=== PATIENT | female | born 1970 | race Caucasian/White ===

== ENCOUNTER 2016-10-14 18:24 | Inpatient (IN) | payer BC ==
[~2016-10-14] VITALS: Ht 170.2 cm; Wt 107.5 kg
[2016-10-14 18:34] VITALS: BP 148/70
--- NOTE | 2016-10-14 20:00 | NUR ---
PATIENT TO ER BED 7
--- NOTE | 2016-10-14 20:08 | NUR ---
PT IS 46/F BIB TO ED WITH C/O DIZZINESS X 2 WKS PROGRESSIVELY WORSENING, FATIGUED, HEAVY MENSES 8 SANITARY [place]/ DAY X 2 MONTHS, LOWER ABDOMINAL PAIN, PALE APPEARING. PT STATES MED HX HTN, FIBROID/CYST UTERUS. DENIES N/V; SKIN IS WARM/DRY; AAOX4 WITH EVEN AND STEADY GAIT; LUNGS CLEAR BL; HR EVEN AND REGULAR; PT DENIES ANY FEVER, CP, SOB, OR COUGH AT THIS TIME; PATIENT STATES PAIN OF 8/10 AT THIS TIME; VSS; PATIENT POSITIONED FOR COMFORT; HOB ELEVATED; BEDRAILS UP X2; BED DOWN. ER MD MADE AWARE OF PT STATUS.
--- NOTE | 2016-10-14 20:10 | NUR ---
PATIENT BEING EVALUATED BY DR. GÓMEZ.
--- NOTE | 2016-10-14 21:52 | NUR ---
PT RESTING IN BED NO SOB NOTED. AT BEDSIDE.
--- NOTE | 2016-10-14 22:35 | NUR ---
STARTED BLOOD TRANSFUSION. WILL CONTINUE TO CLOSELY MONITOR. AT BEDSIDE
[2016-10-14] MEDS ORDERED: MORPHINE SULFATE 4 MG/ML SYR IVP ONE (23:05)
--- NOTE | 2016-10-15 00:35 | NUR ---
PT STATED SHE STARTED TO HAVE A PAIN BELOW BREAST AREA. ER MD MADE AWARE. NO SOB NOTED. CURRENT TEMP IS 98.0 F WILL CONTINUE TO CLOSELY MONITOR.
[2016-10-15] MEDS ORDERED: MORPHINE SULFATE 4 MG/ML SYR IVP ONE (00:40)
[2016-10-15] MEDS ORDERED: ACETAMINOPHEN 325 MG TAB PO PRN (00:45)
[2016-10-15] MEDS ORDERED: HYDROcodone/APAP 5/325 MG 1 TAB TAB PO PRN (00:45)
[2016-10-15] MEDS ORDERED: MORPHINE SULFATE 2 MG/ML SYR IVP PRN (00:45)
[2016-10-15] MEDS ORDERED: ONDANSETRON 4 MG/2 ML VIAL IVP PRN ×3 (00:45→16:00)
[2016-10-15] MEDS ORDERED: diphenhydrAMINE 50 MG/ML VIAL IVP ONE (01:15)
[2016-10-15] MEDS ORDERED: ACETAMINOPHEN EXTRA STRENGTH 500 MG TAB PO ONE (01:15)
--- NOTE | 2016-10-15 02:08 | NUR ---
Patient will be admitted to care of DR ARMENTA. Admited to TELE. Will go to room 105B. Belongings list completed. Report to TRICE COLE.
--- NOTE | 2016-10-15 02:30 | NUR ---
ADMITTED THIS 46 YEAR OLD FEMALE FROM ER PER [facility] WITH CC OF DIZZINESS AND UTERINE BLEEDING, AMBULATED TO BR WITH STEADY GAIT, PROVIDED WITH SANITARY PADS AND DISPOSABLE UNDERWEAR, VERBALIZED MODERATE BLEEDING WITH CLOTS, DENIES ANY PAIN AT THIS TIME, VITAL SIGNS STABLE, ASSESSMENT DONE, ORIENTED TO ROOM AND CALL LIGHT, INSTRUCTED NPO STATUS, VERBALIZED UNDERSTANDING, SAFETY MEASURES IN PLACE, CALL LIGHT WITHIN REACH.
[2016-10-15 03:00] VITALS: BP 119/70
[2016-10-15] MEDS: NACL 0.9% 1,000 ML IV SCH ×3 (03:00→12:38)
--- NOTE | 2016-10-15 03:06 | NUR ---
2ND UNIT OF PRBC STARTED, MONITORED CLOSELY FOR REACTION, VITAL SIGNS MONITORED PER PROTOCOL.
[2016-10-15 04:00] VITALS: BP 113/65
--- NOTE | 2016-10-15 04:15 | NUR ---
COMPLAINING OF CHEST PAIN, VITAL SIGNS STABLE, MEDICATED PRN FOR PAIN, PUT ON O2 AT 2L VIA NC, BLOOD TRANSFUSION ON-GOING, MONITORED CLOSELY.
--- NOTE | 2016-10-15 04:30 | NUR ---
SPOKE TO FAMILIA FROM RADIOLOGY AND SAID THEY WILL DO THE PELVIC ULTRASOUND IN MORNING, PT MADE AWARE.
--- NOTE | 2016-10-15 06:00 | NUR ---
BLOOD TRANSFUSION DONE, TOLERATED WELL, VITAL SIGNS STABLE, DENIES ANY PAIN AT THIS TIME, IVF OF NS AT 80ML/H STARTED, SCD'S APPLIED TO CATHI LOWER EXT, MAINTAINED ON NPO, MONITORED CLOSELY.
--- NOTE | 2016-10-15 07:20 | NUR ---
PT AWAKE, NO DISTRESS NOTED, REPORT GIVEN TO TRICE HERNANDEZ FOR CONTINUITY OF CARE.
--- NOTE | 2016-10-15 07:25 | NUR ---
RECEIVED REPORT FROM NIGHT RN. PT RESTING IN BED, NO S/S OF ACUTE DISTRESS NOTED, PT DENIES PAIN AT THIS TIME, AAO X 4, IV PATENT AND INTACT, ABDOMEN SOFT AND NON-TENDERED, CALL LIGHT WITHIN REACH, SAFETY MEASURE ENSURED, WILL CONTINUE TO MONITOR.
[2016-10-15 08:00] VITALS: BP 107/69
--- NOTE | 2016-10-15 08:22 | NUR ---
PATIENT HAS BEEN SCREENED AND CATEGORIZED MODERATE NUTRITION RISK. PATIENT WILL BE SEEN WITHIN 3-5 DAYS OF ADMISSION. 10/17/16-10/19/[address]
--- NOTE | 2016-10-15 10:00 | NUR ---
PT RESTING IN BED, FAMILY MEMBERS AT THE BEDSIDE. NO S/S OF ACUTE DISTRESS NOTED, PT DENIES PAIN AT THIS TIME. CALL LIGHT WITHIN REACH, SAFETY MEASURE ENSURED, WILL CONTINUE TO MONITOR
[2016-10-15] MEDS ORDERED: ASCORBIC ACID 500 MG TAB PO SCH (11:29)
--- NOTE | 2016-10-15 11:57 | NUR ---
PT STATED HEADACHE 09/28. NO S/S OF ACUTE DISTRESS NOTED, MEDICATED ORDERED. FAMILY MEMBER AT BEDSIDE. CALL LIGHT WITHIN REACH, SAFETY MEASURE ENSURED, WILL CONTINUE TO MONITOR.
[2016-10-15 12:00] VITALS: BP 110/64
--- NOTE | 2016-10-15 12:55 | NUR ---
ASSISTED PT TO THE RESTROOM. BLOOD CLOTS NOTED AFTER VOID, PT STATED NO PAIN OR DISCOMFORT WHEN URINATING. PT STATED NO PAIN AND SHE IS RESTING IN BED RIGHT NOW. CALL LIGHT WITHIN REACH, SAFETY MEASURE ENSURED, WILL CONTINUE TO MONITOR.
--- NOTE | 2016-10-15 15:27 | NUR ---
PT TAKEN OFF UNIT TO OR
[2016-10-15] MEDS ORDERED: PROPOFOL 200 MG/20 ML VIAL IV ONE (15:30)
[2016-10-15] MEDS ORDERED: MIDAZOLAM 2 MG/2 ML VIAL ONE (15:44)
[2016-10-15] MEDS ORDERED: fentaNYL 0.05 MG/ML VIAL ONE (15:44)
[2016-10-15] MEDS ORDERED: MEPERIDINE 25 MG/ML SYR ONE (15:45)
[2016-10-15] MEDS ORDERED: MORPHINE SULFATE 4 MG/ML SYR IM/IVP PRN (16:00)
[2016-10-15] MEDS ORDERED: IBUPROFEN 800 MG TAB PO PRN (16:00)
[2016-10-15] MEDS ORDERED: MEPERIDINE 25 MG/ML SYR IVP PRN (16:00)
[2016-10-15] MEDS ORDERED: ACETAMINOPHEN/CODEINE 300/30MG 1 TAB PO PRN (16:00)
[2016-10-15] MEDS ORDERED: diphenhydrAMINE 50 MG/ML VIAL IVP PRN (16:00)
[2016-10-15] MEDS ORDERED: HYDROmorphone 1 MG/ML AMP IVP PRN (16:00)
[2016-10-15 16:45] VITALS: BP 119/70
--- NOTE | 2016-10-15 16:45 | NUR ---
PT RETURNED TO THE UNIT FROM OR. PT IS IN STABLE CONDITION, NO S/S OF ACUTE DISTRESS NOTED, PT DENIES PAIN AT THIS TIME. MINIMAL VAGINAL BLEEDING NOTED. INFORMED PT TO CALL NURSE WHEN SHE NEEDS TO USE RESTROOM. FAMILY MEMBER IS AT BEDSIDE. CALL LIGHT WITHIN REACH, SAFETY MEASURE ENSURED, WILL CONTINUE TO MONITOR.
[2016-10-15] MEDS: FERROUS SULFATE 325 MG TABEC PO SCH (17:19)
--- NOTE | 2016-10-15 17:35 | NUR ---
PT IS SITTING UP IN BED AND EATING DINNER. IV INFILTRATED, OFFERED TO START NEW IV, PT REFUSED. NO S/S OF ACUTE DISTRESS NOTED, FAMILY MEMBER IS AT BEDSIDE, CALL LIGHT WITHIN REACH, SAFETY MEASURE ENSURED, WILL CONTINUE TO MONITOR
[2016-10-15] MEDS: LACTATED RINGERS 1,000 ML IV SCH (17:42)
--- NOTE | 2016-10-15 18:04 | NUR ---
ASSISTED PT TO THE RESTROOM, NO CLOT NOTED AFTER VOID, FLATULENCE PRESENT, NO S/S OF ACUTE DISTRESS NOTED, PT FINISHED 100% DINNER, DENIES PAIN AT THIS TIME. FAMILY MEMBER AT BEDSIDE, CALL LIGHT WITHIN REACH, SAFETY MEASURE ENSURED, WILL CONTINUE TO MONITOR.
--- NOTE | 2016-10-15 19:21 | NUR ---
ENDORSED PLAN OF CARE TO NIGHT RN. PT IS STABLE
--- NOTE | 2016-10-15 19:21 | NUR ---
RECEIVED REPORT FROM DAY RN FOR CONTINUITY OF CARE. PATIENT IS A&OX4, DISCUSSED PLAN OF CARE WITH PATIENT, VERBALIZED UNDERSTANDING. SHIFT ASSESSMENT DONE, VS TAKEN, STABLE. NO S/S OF RESPIRATORY DISTRESS NOTED ON ROOM AIR. PATIENT DENIES PAIN. VOMITED X1, MEDICATED PER MD ORDER. IV TO RT AC 20 GAUGE PATENT AND INFUSING FLUIDS WELL. PATIENT AMBULATED TO RESTROOM. SAFETY PRECAUTIONS ENFORCED. WILL CONTINUE TO MONITOR.
[2016-10-15 20:00] VITALS: BP 119/78
--- NOTE | 2016-10-15 21:00 | NUR ---
SPOKE TO DR. RICHARDSON REGARDING PT REQUEST FOR SLEEPING MEDICATION, WILL ADMINISTERED ORDERED.
[2016-10-15] MEDS ORDERED: TEMAZEPAM 15 MG CAP PO PRN (21:10)
--- NOTE | 2016-10-15 22:15 | NUR ---
PT AMBULATED TO RESTROOM, SCANT BLEEDING NOTED. RETURNED TO BED AND MADE COMFORTABLE. CALL LIGHT WITHIN REACH. WILL CONTINUE TO MONITOR.
[2016-10-16] VITALS: BP 114/75
--- NOTE | 2016-10-16 00:03 | NUR ---
VS TAKEN, STABLE. PT RESTING IN BED, NO S/S OF DISTRESS OR DISCOMFORT NOTED. PER PT AMBULATED TO RESTROOM WITH MINIMAL BLEEDING NOTED. CALL LIGHT WITHIN REACH. WILL CONTINUE TO MONITOR.
[2016-10-16] MEDS: LACTATED RINGERS 1,000 ML IV SCH ×3 (00:18→08:38)
--- NOTE | 2016-10-16 02:04 | NUR ---
PATIENT SLEEPING AT THIS TIME. NO S/S OF DISTRESS OR DISCOMFORT NOTED. CALL LIGHT WITHIN REACH. WILL CONTINUE TO MONITOR.
[2016-10-16 04:00] VITALS: BP 117/77
--- NOTE | 2016-10-16 04:07 | NUR ---
VS TAKEN, STABLE. ALL NEEDS MET AT THIS TIME. CALL LIGHT WITHIN REACH, WILL CONTINUE TO MONITOR.
--- NOTE | 2016-10-16 05:58 | NUR ---
PT RESTING IN BED. NO S/S OF DISTRESS OR DISCOMFORT NOTED. WILL CONTINUE TO MONITOR.
--- NOTE | 2016-10-16 07:10 | NUR ---
ENDORSED PATIENT TO DAY RN FOR CONTINUITY OF CARE, PATIENT IS IN STABLE CONDITION.
--- NOTE | 2016-10-16 07:15 | NUR ---
RECEIVED REPORT FROM NIGHT RN. PT SLEEPING IN BED, AAOX4, NO S/S OF ACUTE DISTRESS NOTED. IV PATENT AND INTACT, PT DENIES PAIN AT THIS TIME, SAFETY MEASURE ENSURED, WILL CONTINUE TO MONITOR
[2016-10-16 08:00] VITALS: BP 118/74
[2016-10-16] MEDS: FERROUS SULFATE 325 MG TABEC PO SCH (08:40)
[2016-10-16] MEDS ORDERED: ASCORBIC ACID 500 MG TAB PO SCH (09:00)
[2016-10-16] MEDS ORDERED: COLACE100 MG PO (09:36)
[2016-10-16] MEDS ORDERED: FEROSUL325 MG PO (09:36)
[2016-10-16] MEDS ORDERED: PHARMASSURE VI500 MG PO (09:36)
--- NOTE | 2016-10-16 09:45 | NUR ---
PT RESTING IN BED, FAMILY MEMBER AT BEDSIDE, NO S/S OF ACUTE DISTRESS NOTED, PT DENIES PATIENT AT THIS TIME. CALL LIGHT WITHIN REACH, SAFETY MEASURE ENSURED, WILL CONTINUE TO MONITOR
[2016-10-16 09:57] VITALS: BP 118/74
--- NOTE | 2016-10-16 11:04 | NUR ---
PT IS DISCHARGED, DISCHARGED INSTRUCTION GIVEN, DISCHARGE TEACHING PROVIDED,PT VERBALIZED UNDERSTANDING, IV TAKEN OUT, TIP INTACT, NO S/S OF ACUTE DISTRESS, PT TAKEN OFF UNIT.
--- NOTE | 2016-10-18 15:24 | NUR ---
PER DANI, [employer]. PATIENT HAS BEEN APPROVED FOR 1 DAY, NO REVIEW NEEDED.
== END 2016-10-16 11:04 | disposition home or self-care (01) | DRG 744 ==
LOC: MED 18:24 → MTU 10-15 02:00
PROVIDERS: ADMIT Family Medicine; ATTEND Family Medicine
PROC: 30233N1 Transfusion of Nonautologous Red Blood Cells into Peripheral Vein, Percutaneous Approach (ICD-10-PCS; 2016-10-15)
PROC: 30233N1 Transfusion of Nonautologous Red Blood Cells into Peripheral Vein, Percutaneous Approach (ICD-10-PCS; 2016-10-15)
PROC: 0UDB7ZZ Extraction of Endometrium, Via Natural or Artificial Opening (ICD-10-PCS; principal; 2016-10-15 15:15)
DX: D25.9 Leiomyoma of uterus, unspecified (principal); D62 Acute posthemorrhagic anemia; R65.10 Systemic inflammatory response syndrome (SIRS) of non-infectious origin without acute organ dysfunction; I10 Essential (primary) hypertension; N85.00 Endometrial hyperplasia, unspecified; N93.8 Other specified abnormal uterine and vaginal bleeding; J45.909 Unspecified asthma, uncomplicated; D72.829 Elevated white blood cell count, unspecified; N92.1 Excessive and frequent menstruation with irregular cycle; Z90.49 Acquired absence of other specified parts of digestive tract; Z83.3 Family history of diabetes mellitus; E66.01 Morbid (severe) obesity due to excess calories; Z68.37 Body mass index [BMI] 37.0-37.9, adult